=== PATIENT | female | born 1975 | race Caucasian/White ===

== ENCOUNTER → 2025-04-11 | Day surgery (SDC) | payer OTHER ==
[2025-04-10 10:08] VITALS: BMI 22.6
[~2025-04-11] MED LIST: DEXAMETHASONE SOD PHOSPHATE 10 MG/1 ML VIAL ONE; LIDOCAINE HCL/PF 1% SDV 5ML VIAL ONE; SODIUM CHLORIDE 0.9% P/F 10 ML VIAL IJ ONE
[2025-04-11 07:49] VITALS: RESP 20; TEMP 97.7
[2025-04-11 08:52] VITALS: BP 145/91; PULSE 73
== END | disposition home or self-care (01) ==
LOC: JASU-SURG 06:19
PROVIDERS: ATTEND Pain Medicine Pain Medicine
PROC: 3E0R3BZ Introduction of Anesthetic Agent into Spinal Canal, Percutaneous Approach (ICD-10-PCS; 2025-04-11)
PROC: 3E0R33Z Introduction of Anti-inflammatory into Spinal Canal, Percutaneous Approach (ICD-10-PCS; principal; 2025-04-11 08:18)
DX: M54.16 Radiculopathy, lumbar region (principal)
CPT/HCPCS: 76000-TC-FY; J1100